=== PATIENT | female | born 1960 | race Caucasian/White ===

== ENCOUNTER 2024-12-10 13:32 | Emergency (ER) | payer SELFPAY ==
[~2024-12-10] VITALS: Ht 167.6 cm; Wt 81.5 kg
[2024-12-10 13:34] VITALS: BP 138/96; TEMP 98.6; O2SAT 98
[2024-12-10] MEDS ORDERED: SPIR-10 (13:50)
[2024-12-10] MEDS ORDERED: TORS10TA3 (13:50)
[2024-12-10] MEDS ORDERED: CARV3.12 (13:50)
[2024-12-10] MEDS ORDERED: ENTR1TAB7 (13:50)
[2024-12-10] MEDS ORDERED: LATANOPROST (13:50)
== END 2024-12-10 16:28 | disposition left against medical advice (07) ==
LOC: M ED 13:32
DX: Z53.21 Procedure and treatment not carried out due to patient leaving prior to being seen by health care provider (principal)

== ENCOUNTER → 2024-12-17 | Outpatient (REF) | payer MEDICARE ==
[~2024-12-17] MED LIST: CARV3.12; ENTR1TAB7; LATANOPROST; SPIR-10; TORS10TA3
== END ==
LOC: M LAB REF 12:12
PROVIDERS: ATTEND Internal Medicine
DX: E83.52 Hypercalcemia (principal)

== ENCOUNTER → 2025-03-09 | Outpatient (CLI) | payer MEDICARE | LOC: M RAD 14:37 | PROVIDERS: ATTEND Internal Medicine Clinical Cardiac Electrophysiology | DX: I42.9 Cardiomyopathy, unspecified (principal); R00.2 Palpitations; I50.9 Heart failure, unspecified ==